=== PATIENT | male | born 1960 | race Caucasian/White ===

== ENCOUNTER → 2017-02-04 | Outpatient (CLI) | payer BC ==
[~2017-02-04] MED LIST: ARGI1CAP2 PO; ASCA500 PO; ASPI325T4 PO; B-COTAB18 PO; BIOTCAP2 PO; COEN150C PO; NSP500 PO; OMEG10002 PO; RESV1CAP3 PO; SYN150 PO; TNR50 PO; VITA400C15 PO; ZCR40 PO; ZINC50TA3 PO; [UNRECOGNIZED DRUG - CODE] PO
[2017-02-04 08:46] LABS: CHOLESTEROL/HDL RATIO 3.1
== END | disposition home or self-care (01) ==
LOC: C.LAB 07:10
PROVIDERS: ATTEND Internal Medicine Cardiovascular Disease
DX: I25.10 Atherosclerotic heart disease of native coronary artery without angina pectoris (principal)

== ENCOUNTER → 2017-09-27 | Outpatient (CLI) | payer OTHER | END | disposition home or self-care (01) | LOC: C.LABSPEC 14:48 | PROVIDERS: ATTEND Family Medicine | DX: N39.0 Urinary tract infection, site not specified (principal) ==

== ENCOUNTER 2020-01-25 10:14 | Inpatient (IN) ==
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
[2020-01-25] MEDS ORDERED: SODIUM CHLORIDE 0.9% 1000ML 1,000 ML IV SCH (10:45)
[2020-01-25] MEDS: HYDROmorphone INJ 0.5 MG/0.5 ML SYR IV PRN ×3 (11:01→12:35)
[2020-01-25] MEDS ORDERED: ONDANSETRON INJ 2 MG/ML 2 ML VIAL ONE ×2 (11:07→13:19)
[2020-01-25] MEDS ORDERED: ONDANSETRON INJ 2 MG/ML 2 ML VIAL IV STA (11:09)
--- NOTE | 2020-01-25 11:24 | XRay Report ---
XR hip LT min 2V CLINICAL HISTORY: likely fracture trauma. Pain. COMPARISON: None. DISCUSSION: Oblique fracture proximal femoral shaft. Moderate bony displacement. No evidence for disl ocation. No evidence for acetabular protrusion. There is no evidence for soft tissue swelling. IMPRESSION: Oblique, moderately distracted fracture proximal femoral shaft. No evidence for dislocati on. ACT 112: Negative or not required by law. The above report was generated using voice recognition software. It may contain grammatical, syntax or spelling errors. Electronically signed by: Gianni Blakely M.D. 01/25/2020 11:22 AM
--- NOTE | 2020-01-25 11:25 | XRay Report ---
XR chest 1V portable CLINICAL HISTORY: pre op COMPARISON STUDY: No previous studies for comparison. FINDINGS: The bones soft tissues and hemidiaphragms are normal. The cardiomediastinal silhouette is n ormal. The lungs are clear. The pulmonary vasculature is normal. IMPRESSION: Negative chest. ACT 112: Negative or not required by law. The above report was generated using voice recognition software. It may contain grammatical, syntax or spelling errors. Electronically signed by: Gianni Blakely M.D. 01/25/2020 11:24 AM
--- NOTE | 2020-01-25 11:29 | Electrocardiogram Report ---
Test Reason : Blood Pressure : / mmHG Vent. Rate : 055 BPM Atrial Rate : 055 BPM P-R Int : 198 ms QRS Dur : 094 ms QT Int : 444 ms P-R-T Axes : 060 012 013 degrees QTc Int : 424 ms Poor data quality, interpretation may be adversely affected Sinus bradycardia Nonspecific T wave abnormality Abnormal ECG When compared with ECG of 17-JUN-2019 08:37, Questionable change in QRS axis Nonspecific T wave abnormality now evident in Inferior leads Confirmed by Thom Carpenter ([id number]) on 01/25/2020 11:29:30 AM Referred By: REFERRED SELF Confirmed By:Thom Carpenter
[2020-01-25 11:39] LABS: Hematocrit (blood only) 45.1 % (42-52); Hemoglobin 15.1 g/dL (14.0-18.0); Mean Corpuscular Hemoglobin 30.9 pg (25-34); Mean Corpuscular Hgb Conc 33.5 g/dL (32-36); Mean Corpuscular Volume 92.2 fL (80-100); Mean Platelet Volume 13.6 fL (7.4-10.4); Platelet Count 100 K/uL (130-400); RDW Standard Deviation 42.9 fL (36.4-46.3); Red Blood Count 4.89 M/uL (4.7-6.1); White Blood Count 6.33 K/uL (4.8-10.8)
[2020-01-25 11:40] LABS: Basophils # (auto) 0.02 K/uL (0-0.2); Basophils % (auto) 0.3 %; Eosinophils # (auto) 0.14 K/uL (0-0.5); Eosinophils % (auto) 2.2 %; Immature Granulocytes # (auto) 0.01 K/uL (0.00-0.02); Immature Granulocytes % (auto) 0.2 %; Lymphocytes # (auto) 0.94 K/uL (1.2-3.4); Lymphocytes % (auto) 14.8 %; Monocytes # (auto) 0.46 K/uL (0.11-0.59); Monocytes % (auto) 7.3 %; Neutrophils # (auto) 4.76 K/uL (1.4-6.5); Neutrophils % (auto) 75.2 %; Platelet Estimate Decreased (Normal)
[2020-01-25 12:03] LABS: Partial Thromboplastin Ratio 0.9; Partial Thromboplastin Time 24.6 Seconds (21.0-31.0)
[2020-01-25 12:07] LABS: BUN Creatinine Ratio 17.6 (10-20); Calcium 8.3 mg/dl (8.5-10.1); Creatinine Clr Calc Pharmacy 115.8 ml/min; Potassium 3.6 mmol/L (3.5-5.1)
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
[2020-01-25] MEDS ORDERED: NALOXONE HCL 0.4 MG/1 ML VIAL/CARP IV PRN ×2 (12:14→20:27)
[2020-01-25] MEDS ORDERED: MAGNESIUM HYDROXIDE SUSP 30 ML UDC PO PRN (12:14)
[2020-01-25] MEDS ORDERED: bisacodyL 10 MG SUPP PR PRN (12:14)
[2020-01-25] MEDS ORDERED: LACTATED RINGER'S 1,000 ML IV SCH (12:15)
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
[2020-01-25] MEDS ORDERED: NEOSTIGMINE METHYLSULFATE 5 MG/5 ML SYR ONE (13:19)
[2020-01-25] MEDS ORDERED: BUPIVACAINE 0.5 % 5 MG/1 ML MPF 30ML VIAL ONE (13:19)
[2020-01-25] MEDS ORDERED: PROPOFOL IV EMULSION 10 MG/ML 20 ML VIAL IV ONE (13:19)
[2020-01-25] MEDS ORDERED: LIDOCAINE HCL 1% 20 ML VIAL ONE (13:19)
[2020-01-25] MEDS ORDERED: DEXAMETHASONE SOD INJ 4 MG/ML VIAL ONE (13:19)
[2020-01-25] MEDS ORDERED: GLYCOPYRROLATE 0.2 MG/ML VIAL ONE (13:19)
[2020-01-25] MEDS ORDERED: fentaNYL citrate 100 MCG/2 ML VIAL ONE (13:19)
[2020-01-25] MEDS ORDERED: MIDAZOLAM HCL 1 MG/ML 2ML VIAL ONE (13:19)
[2020-01-25] MEDS ORDERED: LIDOCAINE HCL 2% 2 ML VIAL/AMP(20MG/ML) INFIL ONE (13:19)
--- NOTE | 2020-01-25 13:19 | Anesthesiology Consultation ---
Date of Service January 25, 2020 Assessment & Plan ASA ASA3 Proposed Anesthesia Anesthesia Type: General Risk / Benefits Reviewed With: PT / POA / Parent / Guardian, Accepts Plan and Informed Consent Obtained History Surgery Operation Date: 01/25/20 14:00 Proposed Procedures p Bipolar Hip Prosthesis - Robert Josefa Narvaez MD Height/Weight Height: 5 ft 11 in Weight: 111.3 kg Allergies Allergy/AdvReac Type Severity Reaction Status Date / Time No Known Drug Allergies Allergy Verified 01/25/20 11:37 Medications Home Medications Medication Instructions Recorded Confirmed Last Taken levothyroxine 125 mcg tablet 125 mcg PO HS tab 04/03/19 01/25/20 01/25/20 resveratrol 250 mg capsule 500 mg PO QAM cap 04/03/19 01/25/20 01/24/20 omega-3 fatty acids 1,000 mg 1,000 mg PO BID 06/05/19 01/25/20 01/24/20 capsule aspirin 325 mg PO HS 06/12/19 01/25/20 06/18/19 20:00 coQ10 (ubiquinol) 100 mg PO BID 06/12/19 01/25/20 01/24/20 lecithin 2,040 mg PO TID 06/12/19 01/25/20 01/24/20 vitamin B complex 1 tab PO BID 06/12/19 01/25/20 01/24/20 simvastatin 40 mg tablet 40 mg PO HS #90 tab 06/18/19 01/25/20 01/24/20 niacin 1,000 mg tablet,extended 1,500 mg PO BID tab 01/13/20 01/25/20 01/24/20 release 24 hr atenolol 100 mg PO HS 01/25/20 01/25/20 01/24/20 cholecalciferol (vitamin D3) 25 mcg PO QAM 01/25/20 01/25/20 01/24/20 [Vitamin D3] vitamin K2 0 mcg PO QAM 01/25/20 01/25/20 01/24/20 Active Medications Generic Name Dose Route Start Last Admin Trade Name Freq PRN Reason Stop Dose Admin Hydromorphone HCl 0.5 mg 01/25/20 10:31 01/25/20 12:35 Dilaudid IV 02/08/20 10:30 0.5 mg Q20M PRN Administration Severe Pain (Rating 7,8,9,10) Sodium Chloride 1,000 mls @ 150 mls/hr 01/25/20 10:45 01/25/20 11:41 Nss 1000ml IV 01/25/20 17:24 150 mls/hr .Q6H40M ANTIONE Administration NPO Date Last Intake of Fluids: 01/25/20 Time Last Intake of Fluids: 07:00 Date Last Intake of Solids: 01/24/20 Time Last Intake of Solids: 02:20 Past Medical History Medical History CAD (coronary artery disease) 2002- angioplasty + BMS x2 Hyperlipidemia Hypertension Hypothyroidism Obesity Umbilical hernia (Acute) repaired Exercise / Class Metabolic Activity II 4-5 Yardwork/Stairs/Walk up hill Past Surgical History Surgical History H/O thyroidectomy FOR MULTI-NODULAR GOITER (2001) History of cardiac cath 2002- ANGIOPLASTY WITH 2 BARE METAL STENTS History of colonoscopy History of herniorrhaphy LAPAROSCOPIC/INGUINAL Past Anesthesia History No Hx of Anesthesia Complications and No Family Hx of Anesthesia Complications History of PONV No Hx of PONV and No Hx of Motion Sickness Social History Smoking Status: Never smoker Do You Dip or Chew Tobacco: No Hx Alcohol Use: No Hx Substance Use: No substance use type: does not use Review of Systems denies fever/cough/ colds/ chest pain/ SOB/ ELVIN Constitutional: no fever and no chills Respiratory: no cough and no dyspnea denies ELVIN Cardiovascular: no chest pain and no dyspnea on exertion Physical Exam Vital Signs Last Vital Signs Temp 36.9 C 01/25/20 10:23 Pulse 80 01/25/20 12:23 Resp 18 01/25/20 12:23 BP 114/67 01/25/20 12:23 Pulse Ox 97 01/25/20 12:23 ENMT Mouth: no TMJ abnormality and no dentition abnormality Thyromental Distance: > or= 3.5 Finger Breadths Mallampati Class: II Neck neck extension not limited Respiratory normal respiratory effort; no respiratory distress Auscultation: lungs clear to auscultation bilaterally Cardiovascular Rate/Rhythm: regular rate and regular rhythm Neurologic pt lower extremities in a binder Psychiatric Orientation: alert and oriented x 3 Testing Laboratory Results 01/25/20 10:46 01/25/20 11:36 PT 11.0 Seconds (9.0-12.0) 01/25/20 11:36 INR 1.0 (0.9-1.1) 01/25/20 11:36 APTT 24.6 Seconds (21.0-31.0) 01/25/20 11:36
[2020-01-25] MEDS ORDERED: ATROPINE SULFATE 0.1 MG/ML 10ML SYR IV PRN (13:24)
[2020-01-25] MEDS ORDERED: ONDANSETRON INJ 2 MG/ML 2 ML VIAL IV PRN (13:24)
[2020-01-25] MEDS ORDERED: HYDROmorphone INJ 2 MG/ML SYR/VIAL IV PRN (13:24)
[2020-01-25] MEDS ORDERED: ePHEDrine sulfate 50 MG/ML AMP IV PRN (13:24)
[2020-01-25] MEDS ORDERED: fentaNYL citrate 100 MCG/2 ML VIAL IV PRN (13:24)
[2020-01-25] MEDS ORDERED: CEFAZOLIN 250 MG/ML 1 GM VIAL ONE ×2 (14:01→18:36)
[2020-01-25] MEDS ORDERED: ROCURONIUM BROMIDE 10 MG/ML 5 ML VIAL IV ONE ×2 (14:09→15:03)
[2020-01-25] MEDS ORDERED: ePHEDrine sulfate 50 MG/ML SYR ONE ×2 (14:09→15:56)
[2020-01-25] MEDS ORDERED: HYDROmorphone INJ 2 MG/ML SYR/VIAL ONE (14:36)
--- NOTE | 2020-01-25 18:34 | Fluoroscopy Report ---
FL hip LT 2-3V CLINICAL HISTORY: LT HIP FX COMPARISON STUDY: Same date FLUOROSCOPY TIME: 3 minutes 25 seconds NUMBER OF FLUOROSCOPIC IMAGES: 8 FINDINGS: Anatomic alignment post left hip nailing. Intramedullary nir placed the length of the left femur. Fracture of proximal femur is again noted. IMPRESSION: Anatomic alignment post left hip nailing ACT 112: Negative or not required by law. The above report was generated using voice recognition software. It may contain grammatical, syntax or spelling errors. Electronically signed by: Gianni Blakely M.D. 01/25/2020 6:32 PM
--- NOTE | 2020-01-25 18:55 | Post Operative Brief Note ---
Immediate Post Op Note v1 Date of Surgery January 25, 2020 Pre & Post Diagnosis Operation Date: 01/25/20 14:00 Pre-Op Diagnosis: Left subtrochanteric femur fracture. Post-Op Diagnosis: Left subtrochanteric femur fracture. I identified the patient and participated in the time-out.: Yes Procedure Operation Date: 01/25/20 14:00 Actual Procedures p Open Reduction Internal Fixation Left Subtrochanteric Fracture.(Left) - Robert Narvaez MD Surgeon Robert Narvaez MD Pharmacy Intake Technician Laureen Vazquez MD & Stephanie Burger PAEric Estimated Blood Loss 120 Findings Consistent with Post-Op Diagnosis Fluids 2000 cc Anesthesia Type General Complications none
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
--- NOTE | 2020-01-25 19:29 | Anesthesiology Progress Note ---
Date of Service January 25, 2020 Anesthesia Post Procedure Vital Signs Vital Signs: Temp Pulse Pulse Resp BP BP Pulse Ox 01/25/20 12:23 80 18 114/67 97 01/25/20 10:23 36.9 C 70 18 145/83 H 98 Pain Intensity Left Hip: Pain Intensity: 8 Transfer of Care Handoff Completed per policy Notes Mental Status: alert / awake / arousable and participated in evaluation Patient Amnestic to Procedure: Yes Nausea / Vomiting: adequately controlled Pain: adequately controlled Airway Patency, RR, SpO2: stable & adequate BP & HR: stable & adequate Hydration State: stable & adequate Anesthetic Complications: no major complications apparent and Pt Satisfied with anesthetic care
[2020-01-25] MEDS ORDERED: LECITHIN PO SCH (20:27)
[2020-01-25] MEDS ORDERED: NON-FORMULARY MEDICATION (Coq10 (Ubiquinol) 100 MG) PO SCH (21:00)
[2020-01-25] MEDS: ONDANSETRON INJ 2 MG/ML 2 ML VIAL IV PRN (21:14)
--- NOTE | 2020-01-25 21:38 | Operative Report ---
Post Operative Report Pre & Post Diagnosis Operation Date: 01/25/20 14:00 Pre-Op Diagnosis: Left subtrochanteric femur fracture. Post-Op Diagnosis: Left subtrochanteric femur fracture. I identified the patient and participated in the time-out.: Yes Procedure Operation Date: 01/25/20 14:00 Actual Procedures p Open Reduction Internal Fixation Left Subtrochanteric Fracture.(Left) - Robert Narvaez MD Surgeon Robert Narvaez MD Pastry Wrapper Laureen Vazquez MD & Stephanie Burger PA-C Estimated Blood Loss 120 Findings Consistent with Post-Op Diagnosis Specimens None Complications none Disposition Accompanied Patient To Recovery: Yes Disposition: Recovery Room Description of Procedure Lateral position, standard prep and drape, time-out Open Reduction Internal Fixation Left Subtrochanteric Fracture Please see Dr Narvaez's procedure notes for specific details I was present throughout the case, assisted for wound closure and transferred the patient to PACU in stable condition I attest to the content of the Intraoperative Record and any orders documented therein. Any exceptions are noted below.
[2020-01-25] MEDS ORDERED: CEFAZOLIN 2000MG 2,000 MG/15 ML SYR IV ONE (22:00)
[2020-01-25] MEDS: VITAMIN B COMPLEX TAB PO SCH (22:15)
[2020-01-25] MEDS: DOCUSATE SODIUM/SENNA 50/8.6MG TAB PO SCH (22:15)
[2020-01-25] MEDS: ATENOLOL 50 MG TABLET PO SCH (22:15)
[2020-01-25] MEDS: LACTATED RINGER'S 1,000 ML IV SCH (22:16)
[2020-01-25] MEDS: OMEGA-3 (PURIFIED FISH OIL) 1 GM CAP PO SCH (22:21)
[2020-01-26] MEDS: HYDROmorphone INJ 0.5 MG/0.5 ML SYR IV PRN ×4 (00:42→12:27)
[2020-01-26] MEDS: LACTATED RINGER'S 1,000 ML IV SCH ×3 (02:30→22:16)
[2020-01-26 04:36] LABS: Appearance Urine Clear (Clear); Bacteria Urine Automated Negative (Negative); Bilirubin Urine Negative (Negative); Blood Urine 2+ (Negative); Color Urine Yellow; Glucose Urine UA Negative (Negative); Ketones Urine 3+ (Negative); Leukocyte Esterase Urine Negative (Negative); Nitrite Urine Negative (Negative); Protein Urine Negative (Negative); RBC Urine Automated >30 /hpf (0-4); Specific Gravity Urine 1.022 (1.000-1.030); Urobilinogen Urine Negative (Negative)
[2020-01-26] MEDS: LEVOTHYROXINE SODIUM 125 MCG TABLET PO SCH (05:50)
[2020-01-26] MEDS ORDERED: CEFAZOLIN 2000MG 2,000 MG/15 ML SYR IV SCH (06:00)
[2020-01-26 07:08] LABS: BUN Creatinine Ratio 13.3 (10-20); Calcium 7.6 mg/dl (8.5-10.1); Creatinine Clr Calc Pharmacy 118.6 ml/min; Est GFR (African American) 110.1; Potassium 4.3 mmol/L (3.5-5.1)
[2020-01-26 07:16] LABS: Eosinophils # (auto) 0.01 K/uL (0-0.5); Eosinophils % (auto) 0.1 %; Hematocrit (blood only) 36.3 % (42-52); Hemoglobin 12.4 g/dL (14.0-18.0); Immature Granulocytes # (auto) 0.01 K/uL (0.00-0.02); Immature Granulocytes % (auto) 0.1 %; Lymphocytes # (auto) 0.63 K/uL (1.2-3.4); Lymphocytes % (auto) 8.9 %; Mean Corpuscular Hemoglobin 31.6 pg (25-34); Mean Corpuscular Hgb Conc 34.2 g/dL (32-36); Mean Corpuscular Volume 92.4 fL (80-100); Mean Platelet Volume 12.2 fL (7.4-10.4); Monocytes # (auto) 0.76 K/uL (0.11-0.59); Monocytes % (auto) 10.7 %; Neutrophils # (auto) 5.68 K/uL (1.4-6.5); Neutrophils % (auto) 80.2 %; Platelet Count 120 K/uL (130-400); Platelet Estimate Decreased (Normal); RDW Coefficient of Variation 12.9 % (11.5-14.5); RDW Standard Deviation 43.6 fL (36.4-46.3); Red Blood Count 3.93 M/uL (4.7-6.1); White Blood Count 7.09 K/uL (4.8-10.8)
[2020-01-26] MEDS: ONDANSETRON INJ 2 MG/ML 2 ML VIAL IV PRN (07:27)
[2020-01-26] MEDS ORDERED: ASPIRIN 81 MG ECTAB PO SCH (09:00)
[2020-01-26] MEDS ORDERED: OXYCODONE HCL IR 5 MG TAB (IMMEDIATE RELEASE) PO PRN (09:33)
[2020-01-26] MEDS: OMEGA-3 (PURIFIED FISH OIL) 1 GM CAP PO SCH ×2 (09:43→20:27)
[2020-01-26] MEDS: CHOLECALCIFEROL 1,000 UNITS 25 MCG TAB PO SCH (09:43)
[2020-01-26] MEDS: VITAMIN B COMPLEX TAB PO SCH ×2 (09:43→20:26)
[2020-01-26] MEDS: NIACIN EXTENDED REL 500 MG TABCR PO SCH ×2 (09:44→20:27)
[2020-01-26] MEDS: ACETAMINOPHEN 500 MG TAB PO SCH ×2 (10:28→16:10)
--- NOTE | 2020-01-26 10:57 | Orthopedic Progress Note ---
Date of Service January 26, 2020 Assessment & Plan (1) Hip fracture, left: POD #1 s/p ORIF Left subtroch femur fracture. WBAT with walker. PT/OT Resume diet. Continue pain control. DVT Prophylaxis: TEDs x 3 weeks on operative leg, SCD's while in hospital, ASA 81 PO daily for 3 weeks. Continue to fallow while in house. Acute anemia blood loss, will continue to monitor. Will start Fe & Vit C take together for 2 weeks. Dressing to be changed to Silverlon tomorrow by ortho team. Continue care per primary service. Admission and Anticipated Discharge Date Admission Date: January 25, 2020 Subjective Feeling pretty wiped out and pain in his buttock. Did feel light headed when attempting to stand with PT earlier today. Review of Systems Review of Systems: All systems reviewed & are unremarkable except as noted in HPI & below Physical Exam Physical Exam: LLE: Neurovascularly intact. Calf soft and non-tender. Dressing clean, dry, intact. Minimal discomfort with log roll hip. Results & Data ([facility]) Vital Signs (Past 12 Hours) Vital Signs Temp Pulse Resp BP Pulse Ox Pulse Ox 01/26/20 06:35 133/80 01/26/20 06:30 36.7 C 67 16 116/77 98 01/26/20 05:07 99 01/26/20 03:25 36.5 C 67 16 120/76 99 01/25/20 23:45 96 01/25/20 23:17 36.5 C 71 16 101/66 96 Laboratory Results 01/26/20 01/26/20 01/26/20 Range/Units Unknown 06:15 06:15 WBC 7.09 (4.8-10.8) K/uL RBC 3.93 L (4.7-6.1) M/uL Hgb 12.4 L (14.0-18.0) g/dL Hct 36.3 L (42-52) % MCV 92.4 (80-100) fL MCH 31.6 (25-34) pg MCHC 34.2 (32-36) g/dL RDW Std Deviation 43.6 (36.4-46.3) fL RDW Coeff of [place] 12.9 (11.5-14.5) % Plt Count 120 L (130-400) K/uL MPV 12.2 H (7.4-10.4) fL Immature Gran % (Auto) 0.1 % Neut % (Auto) 80.2 % Lymph % (Auto) 8.9 % [place] % (Auto) 10.7 % Eos % (Auto) 0.1 % Baso % (Auto) 0.0 % Immature Gran # (Auto) 0.01 (0.00-0.02) K/uL Neut # (Auto) 5.68 (1.4-6.5) K/uL Lymph # (Auto) 0.63 L (1.2-3.4) K/uL [place] # (Auto) 0.76 H (0.11-0.59) K/uL Eos # (Auto) 0.01 (0-0.5) K/uL Baso # (Auto) 0.00 (0-0.2) K/uL Platelet Estimate Decreased L (Normal) PT INR APTT PTT Ratio Sodium 139 Potassium 4.3 D Chloride 107 Carbon Dioxide 27 Anion Gap 5.0 BUN 11 Creatinine 0.83 Est Cr Clr Drug Dosing 118.6 Est GFR ( Amer) 110.1 Est GFR (Non-Af Amer) 95.0 BUN/Creatinine Ratio 13.3 Glucose 121 H Calcium 7.6 L 25-OH Vitamin D Total (30-100) ng/ml Urine Color Yellow Urine Appearance Clear (Clear) Urine pH 5.0 (4.5-7.5) Ur Specific [place] 1.022 (1.000-1.030) Urine Protein Negative (Negative) Urine Glucose (UA) Negative (Negative) Urine Ketones 3+ H (Negative) Urine Blood 2+ H (Negative) Urine Nitrite Negative (Negative) Urine Bilirubin Negative (Negative) Urine Urobilinogen Negative (Negative) Ur Leukocyte Esterase Negative (Negative) Urine WBC (Auto) 1-5 (0-5) /hpf Urine RBC (Auto) >30 H (0-4) /hpf U Hyaline Cast (Auto) 1-5 (0-5) /lpf U Epithel Cells (Auto) 10-20 H (0-5) /lpf Urine Bacteria (Auto) Negative (Negative) COVID-19 PCR (Negative) Blood Type Antibody Screen 01/25/20 01/25/20 01/25/20 Range/Units 12:53 11:36 11:36 WBC (4.8-10.8) K/uL RBC (4.7-6.1) M/uL Hgb (14.0-18.0) g/dL Hct (42-52) % MCV (80-100) fL MCH (25-34) pg MCHC (32-36) g/dL RDW Std Deviation (36.4-46.3) fL RDW Coeff of E[place] (11.5-14.5) % Plt Count (130-400) K/uL MPV (7.4-10.4) fL Immature Gran % (Auto) % Neut % (Auto) % Lymph % (Auto) % [place] % (Auto) % Eos % (Auto) % Baso % (Auto) % Immature Gran # (Auto) (0.00-0.02) K/uL Neut # (Auto) (1.4-6.5) K/uL Lymph # (Auto) (1.2-3.4) K/uL [place] # (Auto) (0.11-0.59) K/uL Eos # (Auto) (0-0.5) K/uL Baso # (Auto) (0-0.2) K/uL Platelet Estimate (Normal) PT 11.0 INR 1.0 APTT 24.6 PTT Ratio 0.9 Sodium 141 Potassium 3.6 Chloride 108 H Carbon Dioxide 25 Anion Gap 8.0 BUN 15 Creatinine 0.85 Est Cr Clr Drug Dosing 115.8 Est GFR ( Amer) 109.0 Est GFR (Non-Af Amer) 94.0 BUN/Creatinine Ratio 17.6 Glucose 107 H Calcium 8.3 L 25-OH Vitamin D Total (30-100) ng/ml Urine Color Urine Appearance (Clear) Urine pH (4.5-7.5) Ur Specific [place] (1.000-1.030) Urine Protein (Negative) Urine Glucose (UA) (Negative) Urine Ketones (Negative) Urine Blood (Negative) Urine Nitrite (Negative) Urine Bilirubin (Negative) Urine Urobilinogen (Negative) Ur Leukocyte Esterase (Negative) Urine WBC (Auto) (0-5) /hpf Urine RBC (Auto) (0-4) /hpf U Hyaline Cast (Auto) (0-5) /lpf U Epithel Cells (Auto) (0-5) /lpf Urine Bacteria (Auto) (Negative) COVID-19 PCR (Negative) Blood Type A Positive Antibody Screen NEGATIVE 01/25/20 01/25/20 01/25/20 Range/Units 11:35 11:15 10:46 WBC (4.8-10.8) K/uL RBC (4.7-6.1) M/uL Hgb (14.0-18.0) g/dL Hct (42-52) % MCV (80-100) fL MCH (25-34) pg MCHC (32-36) g/dL RDW Std Deviation (36.4-46.3) fL RDW Coeff of [place] (11.5-14.5) % Plt Count (130-400) K/uL MPV (7.4-10.4) fL Immature Gran % (Auto) % Neut % (Auto) % Lymph % (Auto) % [place] % (Auto) % Eos % (Auto) % Baso % (Auto) % Immature Gran # (Auto) (0.00-0.02) K/uL Neut # (Auto) (1.4-6.5) K/uL Lymph # (Auto) (1.2-3.4) K/uL Hudson # (Auto) (0.11-0.59) K/uL Eos # (Auto) (0-0.5) K/uL Baso # (Auto) (0-0.2) K/uL Platelet Estimate (Normal) PT INR APTT PTT Ratio Sodium Cancelled Potassium Cancelled Chloride Cancelled Carbon Dioxide Cancelled Anion Gap Cancelled BUN Cancelled Creatinine Cancelled Est Cr Clr Drug Dosing Cancelled Est GFR ( Amer) Cancelled Est GFR (Non-Af Amer) Cancelled BUN/Creatinine Ratio Cancelled Glucose Cancelled Calcium Cancelled 25-OH Vitamin D Total 30.1 (30-100) ng/ml Urine Color Urine Appearance (Clear) Urine pH (4.5-7.5) Ur Specific [place] (1.000-1.030) Urine Protein (Negative) Urine Glucose (UA) (Negative) Urine Ketones (Negative) Urine Blood (Negative) Urine Nitrite (Negative) Urine Bilirubin (Negative) Urine Urobilinogen (Negative) Ur Leukocyte Esterase (Negative) Urine WBC (Auto) (0-5) /hpf Urine RBC (Auto) (0-4) /hpf U Hyaline Cast (Auto) (0-5) /lpf U Epithel Cells (Auto) (0-5) /lpf Urine Bacteria (Auto) (Negative) COVID-19 PCR NEGATIVE (Negative) Blood Type Antibody Screen 01/25/20 01/25/20 Range/Units 10:46 10:46 WBC 6.33 (4.8-10.8) K/uL RBC 4.89 (4.7-6.1) M/uL Hgb 15.1 (14.0-18.0) g/dL Hct 45.1 (42-52) % MCV 92.2 (80-100) fL MCH 30.9 (25-34) pg MCHC 33.5 (32-36) g/dL RDW Std Deviation 42.9 (36.4-46.3) fL RDW Coeff of E[place] 13.0 (11.5-14.5) % Plt Count 100 L (130-400) K/uL MPV 13.6 H (7.4-10.4) fL Immature Gran % (Auto) 0.2 % Neut % (Auto) 75.2 % Lymph % (Auto) 14.8 % [place] % (Auto) 7.3 % Eos % (Auto) 2.2 % Baso % (Auto) 0.3 % Immature Gran # (Auto) 0.01 (0.00-0.02) K/uL Neut # (Auto) 4.76 (1.4-6.5) K/uL Lymph # (Auto) 0.94 L (1.2-3.4) K/uL [place] # (Auto) 0.46 (0.11-0.59) K/uL Eos # (Auto) 0.14 (0-0.5) K/uL Baso # (Auto) 0.02 (0-0.2) K/uL Platelet Estimate Decreased L (Normal) PT Cancelled INR Cancelled APTT Cancelled PTT Ratio Cancelled Sodium Potassium Chloride Carbon Dioxide Anion Gap BUN Creatinine Est Cr Clr Drug Dosing Est GFR ( Amer) Est GFR (Non-Af Amer) BUN/Creatinine Ratio Glucose Calcium 25-OH Vitamin D Total (30-100) ng/ml Urine Color Urine Appearance (Clear) Urine pH (4.5-7.5) Ur Specific [place] (1.000-1.030) Urine Protein (Negative) Urine Glucose (UA) (Negative) Urine Ketones (Negative) Urine Blood (Negative) Urine Nitrite (Negative) Urine Bilirubin (Negative) Urine Urobilinogen (Negative) Ur Leukocyte Esterase (Negative) Urine WBC (Auto) (0-5) /hpf Urine RBC (Auto) (0-4) /hpf U Hyaline Cast (Auto) (0-5) /lpf U Epithel Cells (Auto) (0-5) /lpf Urine Bacteria (Auto) (Negative) COVID-19 PCR (Negative) Blood Type Antibody Screen Diagnostic Findings Fluoroscopic images from intra-op show near anatomic reduction of comminuted left subtroch femur fracture, with hardware in good position.
[2020-01-26] MEDS: ASCORBIC ACID 500 MG TAB PO SCH ×2 (12:28→17:46)
[2020-01-26] MEDS: FERROUS SULFATE 325 MG TAB PO SCH ×2 (12:28→17:46)
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
[2020-01-26] MEDS ORDERED: ACETAMINOPHEN 500 MG TAB PO PRN (18:27)
[2020-01-26] MEDS: ATENOLOL 50 MG TABLET PO SCH (20:18)
[2020-01-26] MEDS: HYDROCODONE/ACETAMOPHEN 5/325MG TAB PO PRN (20:25)
[2020-01-26] MEDS: SIMVASTATIN 40 MG TAB PO SCH (20:26)
[2020-01-26] MEDS: DOCUSATE SODIUM/SENNA 50/8.6MG TAB PO SCH (20:27)
[2020-01-27] MEDS: HYDROCODONE/ACETAMOPHEN 5/325MG TAB PO PRN ×4 (02:21→21:07)
[2020-01-27] MEDS: LEVOTHYROXINE SODIUM 125 MCG TABLET PO SCH (06:18)
[2020-01-27 07:10] LABS: Hematocrit (blood only) 32.3 % (42-52); Hemoglobin 10.6 g/dL (14.0-18.0); Mean Corpuscular Hemoglobin 30.5 pg (25-34); Mean Corpuscular Hgb Conc 32.8 g/dL (32-36); Mean Corpuscular Volume 93.1 fL (80-100); Mean Platelet Volume 12.4 fL (7.4-10.4); Platelet Count 94 K/uL (130-400); RDW Coefficient of Variation 13.3 % (11.5-14.5); RDW Standard Deviation 45.1 fL (36.4-46.3); Red Blood Count 3.47 M/uL (4.7-6.1); White Blood Count 6.52 K/uL (4.8-10.8)
[2020-01-27 07:31] LABS: BUN Creatinine Ratio 13.9 (10-20); Calcium 7.6 mg/dl (8.5-10.1); Creatinine Clr Calc Pharmacy 105.8 ml/min; Est GFR (African American) 102.3; Est GFR (Non-African American) 88.3
--- NOTE | 2020-01-27 08:30 | Orthopedic Progress Note ---
Date of Service January 27, 2020 Assessment & Plan (1) Hip fracture, left: POD #2 s/p ORIF Left subtroch femur fracture, continued pain and light headedness. WBAT with walker. PT/OT Continue diet. Continue pain control. DVT Prophylaxis: TEDs x 3 weeks on operative leg, SCD's while in hospital, ASA 81 PO daily. Continue to follow while in house. Acute anemia blood loss, will continue to monitor. Will start Fe & Vit C take together for 2 weeks. Dressing changed to Silverlon proximal incisions and 2x2 & Tegaderm for distal incisions, 01/27/2020. Continue care per primary service. Admission and Anticipated Discharge Date Admission Date: January 25, 2020 Subjective Continued left leg pain. + light headed when attempting to stand. - Chest pain & SOB Review of Systems Review of Systems: All systems reviewed & are unremarkable except as noted in HPI & below Physical Exam Physical Exam: LLE: Neurovascularly intact. Calf soft and non-tender. Incisions clean, dry, intact. Minimal discomfort with log roll hip. Results & Data ([facility]) Vital Signs (Past 12 Hours) Vital Signs Temp Pulse Resp BP Pulse Ox 01/27/20 07:16 36.6 C 76 18 118/70 95 01/27/20 06:16 79 106/62 01/26/20 23:05 37.1 C 75 16 111/70 95
[2020-01-27] MEDS: LACTATED RINGER'S 1,000 ML IV SCH ×2 (08:39→18:21)
[2020-01-27] MEDS: VITAMIN B COMPLEX TAB PO SCH ×2 (08:40→21:08)
[2020-01-27] MEDS: NIACIN EXTENDED REL 500 MG TABCR PO SCH ×2 (08:40→21:07)
[2020-01-27] MEDS: ASPIRIN 81 MG ECTAB PO SCH (08:40)
[2020-01-27] MEDS: OMEGA-3 (PURIFIED FISH OIL) 1 GM CAP PO SCH ×2 (08:40→21:08)
[2020-01-27] MEDS: CHOLECALCIFEROL 1,000 UNITS 25 MCG TAB PO SCH (08:40)
[2020-01-27] MEDS: ASCORBIC ACID 500 MG TAB PO SCH ×2 (08:41→16:12)
[2020-01-27] MEDS: FERROUS SULFATE 325 MG TAB PO SCH ×2 (08:41→16:12)
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
--- NOTE | 2020-01-27 17:18 | Ultrasound Report ---
US abdomen limited HISTORY: Pain thrombocytopenia. COMPARISON: None. FINDINGS: Liver and spleen appear unremarkable. Spleen measures 10 cm in maximum dimension. Liver measures 18 c m. Echogenicity is uniform. IMPRESSION: Normal ultrasonic evaluation of the liver and spleen. ACT 112: Negative or not required by law. The above report was generated using voice recognition software. It may contain grammatical, syntax or spelling errors. Electronically signed by: Gianni Blakely M.D. 01/27/2020 5:17 PM
[2020-01-27] MEDS: ONDANSETRON INJ 2 MG/ML 2 ML VIAL IV PRN (18:10)
[2020-01-27] MEDS: CALCIUM CITRATE 950 MG TAB PO SCH (21:07)
[2020-01-27] MEDS: DOCUSATE SODIUM/SENNA 50/8.6MG TAB PO SCH (21:08)
[2020-01-27] MEDS: SIMVASTATIN 40 MG TAB PO SCH (21:08)
[2020-01-28] MEDS: LACTATED RINGER'S 1,000 ML IV SCH ×2 (03:58→13:17)
[2020-01-28] MEDS: HYDROCODONE/ACETAMOPHEN 5/325MG TAB PO PRN ×4 (03:58→20:44)
[2020-01-28] MEDS: LEVOTHYROXINE SODIUM 125 MCG TABLET PO SCH (05:57)
[2020-01-28 06:04] LABS: Hematocrit (blood only) 28.6 % (42-52); Hemoglobin 9.5 g/dL (14.0-18.0); Mean Corpuscular Hemoglobin 30.4 pg (25-34); Mean Corpuscular Hgb Conc 33.2 g/dL (32-36); Mean Corpuscular Volume 91.7 fL (80-100); RDW Coefficient of Variation 13.1 % (11.5-14.5); RDW Standard Deviation 44.3 fL (36.4-46.3); Red Blood Count 3.12 M/uL (4.7-6.1); White Blood Count 5.31 K/uL (4.8-10.8)
[2020-01-28 06:09] LABS: Mean Platelet Volume 11.9 fL (7.4-10.4); Platelet Count 86 K/uL (130-400)
[2020-01-28 06:40] LABS: BUN Creatinine Ratio 11.6 (10-20); Calcium 7.5 mg/dl (8.5-10.1); Creatinine Clr Calc Pharmacy 136.7 ml/min; Est GFR (African American) 116.7; Est GFR (Non-African American) 100.7; Potassium 3.7 mmol/L (3.5-5.1)
[2020-01-28] MEDS: OMEGA-3 (PURIFIED FISH OIL) 1 GM CAP PO SCH ×2 (07:33→20:40)
[2020-01-28] MEDS: VITAMIN B COMPLEX TAB PO SCH ×2 (07:33→20:40)
[2020-01-28] MEDS: FERROUS SULFATE 325 MG TAB PO SCH ×2 (07:34→17:26)
[2020-01-28] MEDS: ASPIRIN 81 MG ECTAB PO SCH (07:34)
[2020-01-28] MEDS: ASCORBIC ACID 500 MG TAB PO SCH ×2 (07:34→17:26)
[2020-01-28] MEDS: CALCIUM CITRATE 950 MG TAB PO SCH (07:34)
[2020-01-28] MEDS: NIACIN EXTENDED REL 500 MG TABCR PO SCH ×2 (07:34→20:40)
[2020-01-28] MEDS: CHOLECALCIFEROL 1,000 UNITS 25 MCG TAB PO SCH (07:35)
[2020-01-28 09:33] LABS: Albumin Level 2.4 gm/dl (3.4-5.0); Bilirubin Direct 0.2 mg/dl (0-0.2); Bilirubin,Total 0.7 mg/dl (0.2-1); Total Protein 5.1 gm/dl (6.4-8.2)
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
[2020-01-28] MEDS: DOCUSATE SODIUM/SENNA 50/8.6MG TAB PO SCH (20:40)
[2020-01-28] MEDS: SIMVASTATIN 40 MG TAB PO SCH (20:40)
[2020-01-28] MEDS ORDERED: ATENOLOL 50 MG TABLET PO SCH (21:00)
[2020-01-29] MEDS: LEVOTHYROXINE SODIUM 125 MCG TABLET PO SCH (05:53)
[2020-01-29 06:30] LABS: Hematocrit (blood only) 28.5 % (42-52); Hemoglobin 9.6 g/dL (14.0-18.0); Mean Corpuscular Hemoglobin 30.9 pg (25-34); Mean Corpuscular Hgb Conc 33.7 g/dL (32-36); Mean Corpuscular Volume 91.6 fL (80-100); Platelet Count 112 K/uL (130-400); RDW Standard Deviation 43.5 fL (36.4-46.3); Red Blood Count 3.11 M/uL (4.7-6.1); White Blood Count 4.97 K/uL (4.8-10.8)
[2020-01-29 06:38] LABS: Albumin Level 2.4 gm/dl (3.4-5.0); BUN Creatinine Ratio 11.6 (10-20); Calcium 7.7 mg/dl (8.5-10.1); Creatinine Clr Calc Pharmacy 121.5 ml/min; Est GFR (African American) 111.2; Est GFR (Non-African American) 95.9; Potassium 4.1 mmol/L (3.5-5.1)
[2020-01-29 06:41] LABS: Albumin Globulin Ratio 0.8 (0.9-2); Total Protein 5.4 gm/dl (6.4-8.2)
[2020-01-29] MEDS: FERROUS SULFATE 325 MG TAB PO SCH (08:42)
[2020-01-29] MEDS: ASCORBIC ACID 500 MG TAB PO SCH (08:42)
[2020-01-29] MEDS: CALCIUM CITRATE 950 MG TAB PO SCH (08:43)
[2020-01-29] MEDS: NIACIN EXTENDED REL 500 MG TABCR PO SCH (08:43)
[2020-01-29] MEDS: CHOLECALCIFEROL 1,000 UNITS 25 MCG TAB PO SCH (08:43)
[2020-01-29] MEDS: OMEGA-3 (PURIFIED FISH OIL) 1 GM CAP PO SCH (08:43)
[2020-01-29] MEDS: VITAMIN B COMPLEX TAB PO SCH (08:43)
[2020-01-29] MEDS: ASPIRIN 81 MG ECTAB PO SCH (08:43)
--- NOTE | 2020-01-29 09:38 | Orthopedic Progress Note ---
Date of Service January 29, 2020 Assessment & Plan (1) Hip fracture, left: POD #4 s/p ORIF Left subtroch femur fracture, continued pain and light headedness. WBAT with walker. PT/OT Continue diet. H/H seems to be stable. Agree with treatment as per primary service. Continue pain control. DVT Prophylaxis: TEDs x 3 weeks on operative leg, SCD's while in hospital, ASA 81 PO daily. Continue to follow while in house. Acute anemia blood loss, will continue to monitor. Will start Fe & Vit C take together for 2 weeks. Dressing changed left hip proximal incision, pressure dressing applied to help prevent leakage. 01/29/20. Silverlon left in place. Continue care per primary service. Will notify Dr. Narvaez of today's findings. Patient ready for discharge to inpatient rehab vs. SNF when medically stable and authorization obtained. I, Dr. Narvaez, saw and examined the patient today and agree with the above findings and plan of care discussed with my PA. Admission and Anticipated Discharge Date Admission Date: January 25, 2020 Subjective Feeling okay today, was sitting in chair for almost 2 hours today, states that he thinks that was too much at once. Got a little lightheaded with sitting and dangling left leg. Feels better in bed. Still having drainage from left hip incision. Soaked thru dressings again. Physical Exam Physical Exam: Left hip incision clean and intact. Has yellow brownish serous fluid on dressings. Leaking onto bed and gown. dressings removed. Incision clean, dry, intact. Silverlon intact. No active drainage. No surrounding seroma, or tenderness. 1 small fracture blister. Zipline in place. Pressure dressing applied to left hip proximal incision with xeroform, 4x4's and ABD pad. Results & Data ([facility]) Vital Signs (Past 12 Hours) Vital Signs Temp Pulse Resp BP BP Pulse Ox Pulse Ox 01/29/20 07:24 37.2 C 70 18 130/71 97 01/29/20 05:48 36.7 C 70 12 113/71 97 01/29/20 04:25 96 01/28/20 23:30 96 01/28/20 23:15 36.8 C 76 16 122/71 96 01/28/20 22:02 76 135/71
[2020-01-29] MEDS: HYDROCODONE/ACETAMOPHEN 5/325MG TAB PO PRN (13:56)
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
== END 2020-01-29 15:43 | DRG 481 ==
LOC: ED 10:14 → OR 13:00 → SUATTDRO 19:38 → 3W 19:38

== ENCOUNTER 2024-01-29 19:40 | Observation (INO) ==
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
[2024-01-29] MEDS: METOCLOPRAMIDE HCL INJ 5 MG/ML 2 ML VIAL IV ONE (20:08)
[2024-01-29] MEDS: SODIUM CHLORIDE 0.9% 1,000 ML IV SCH (20:08)
[2024-01-29 20:21] LABS: iSTAT Ionized Calcium 1.07 mmol/l (1.12-1.32); iSTAT Potassium 3.8 mmol/L (3.3-5.0)
[2024-01-29] MEDS: OPTIRAY 320 125ml IV ONE (20:28)
[2024-01-29 20:40] LABS: Alanine Aminotransferase 69 U/L (7-52); Albumin Globulin Ratio 1.3 (0.9-2); Albumin Level 3.8 gm/dl (3.4-5.0); Alkaline Phosphatase 56 U/L (34-104); Anion Gap 7 (3-11); Aspartate Aminotransferase 120 U/L (13-39); BUN Creatinine Ratio 12.2 (10-20); Bilirubin,Total 1.2 mg/dl (0.2-1.0); Blood Urea Nitrogen 12 mg/dl (6-23); Calcium 8.4 mg/dl (8.6-10.3); Carbon Dioxide 24 mmol/L (21-32); Chloride 99 mmol/L (98-107); Est GFR (African American) 93.4 ml/min; Est GFR (Non-African American) 80.6 ml/min; Glucose 149 mg/dl (70-99(Fasting)); Lipase 70 U/L (11-82); Potassium 3.8 mmol/L (3.5-5.1); Sodium 130 mmol/L (136-145); Total Protein 6.8 gm/dl (6.0-8.3)
[2024-01-29 20:46] LABS: Troponin I High Sensitivity 26.5 pg/ml (0-20)
[2024-01-29 20:48] LABS: ALC (manual) 0.35 K/uL (1.2-3.4); ANC (manual) 1.26 K/uL (1.4-6.5); Basophils # (manual) 0.02 K/uL (0-0.2); Basophils % (manual) 1 %; Hematocrit (blood only) 48.1 % (42.0-52.0); Hemoglobin 16.9 g/dl (14.0-18.0); Lymphocytes # (manual) 0.15 K/uL (1.2-3.4); Lymphocytes % (manual) 9 %; Mean Corpuscular Hemoglobin 29.7 pg (25.0-34.0); Mean Corpuscular Hgb Conc 35.1 g/dL (32.0-36.0); Mean Corpuscular Volume 84.5 fL (80.0-100.0); Mean Platelet Volume 12.6 fL (9.4-12.4); Monocytes # (manual) 0.05 K/uL (0.11-0.59); Monocytes % (manual) 3 %; Neutrophils # (manual) 1.26 K/uL (1.40-6.50); Neutrophils % (manual) 75 %; Platelet Count 56 K/uL (130-400); Platelet Estimate Decreased (Normal); Procalcitonin 2.71 ng/ml (0-0.5); RDW Coefficient of Variation 12.6 % (11.5-14.5); RDW Standard Deviation 38.7 fL (36.4-46.3); Reactive Lymphocytes % (manual) 12 %; Red Blood Count 5.69 M/uL (4.70-6.10); White Blood Count 1.68 K/ul (4.8-10.8)
[2024-01-29 21:06] LABS: Adenovirus PCR Not Detected (NotDetected); Bordetella parapertussis PCR Not Detected (NotDetected); Bordetella pertussis PCR Not Detected (NotDetected); Chlamydia pneumoniae PCR Not Detected (NotDetected); Coronavirus 229E PCR Not Detected (NotDetected); Coronavirus CoV-2 (COVID19)PCR Not Detected (NotDetected); Coronavirus HKU1 PCR Not Detected (NotDetected); Coronavirus NL63 PCR Not Detected (NotDetected); Coronavirus OC43PCR Not Detected (NotDetected); Human Metapneumovirus PCR Not Detected (NotDetected); Influenza A PCR Not Detected (NotDetected); Influenza B PCR Not Detected (NotDetected); Mycoplasma pneumoniae PCR Not Detected (NotDetected); Parainfluenza Virus 1 PCR Not Detected (NotDetected); Parainfluenza Virus 2 PCR Not Detected (NotDetected); Parainfluenza Virus 3 PCR Not Detected (NotDetected); Parainfluenza Virus 4 PCR Not Detected (NotDetected); Respiratory Syncytial VirusPCR Not Detected (NotDetected); Rhinovirus/Enterovirus PCR Not Detected (NotDetected)
[2024-01-29 21:14] LABS: Lyme Screen Rflx Confirmation Positive (Negative)
[2024-01-29] MEDS: cefTRIAXone SODIUM 2,000 MG/50 ML BAG IV STA (21:38)
[2024-01-29 21:48] LABS: Lyme Ab IgG 2nd Tier Confirm Positive (Negative)
[2024-01-29 21:49] LABS: Lyme Ab IgM 2nd Tier Confirm Positive (Negative)
[2024-01-29] MEDS: DOXYCYCLINE HYCLATE 100 MG in DEXTROSE 5% MINI-B 100 ML IV STA (22:10)
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
[2024-01-29] MEDS ORDERED: ONDANSETRON INJ 2 MG/ML 2 ML VIAL IV PRN (23:18)
[2024-01-29] MEDS ORDERED: POLYETHYLENE (MIRALAX) 17 GM PACK PO PRN (23:18)
[2024-01-29] MEDS ORDERED: MELATONIN 3 MG TAB PO PRN (23:18)
[2024-01-29] MEDS ORDERED: ACETAMINOPHEN 325 MG TAB PO PRN (23:18)
--- NOTE | 2024-01-30 00:11 | CT Scan Report ---
Exam(s): CT HEAD Without Contrast EXAM: CT Head Without Intravenous Contrast CLINICAL HISTORY: Reason for exam: dizziness/syncope/weak. TECHNIQUE: Axial computed tomography images of the head/brain without intravenous contrast. CTDI is 37 mGy and DLP is 624 mGy-cm. Automated exposure control was utilized for the study. A dose lowering technique was utilized adhering to the principles of ALARA. COMPARISON: Head CT 01/27/2020 FINDINGS: Brain: No hemorrhage, extra-axial fluid collection, mass effect, or edema. Ventricles: Unremarkable. Bones/joints: Unremarkable. No fracture. Soft tissues: Unremarkable. Sinuses: No acute sinusitis. Mastoid air cells: Unremarkable as visualized. IMPRESSION: 1. No acute intracranial abnormality. Electronically signed by: Jarrod Medina MD 01/30/24 00:10 AM
--- NOTE | 2024-01-30 00:12 | CT Scan Report ---
Exam(s): CTA HEAD With Contrast IV Amt: 117 cc opti 320 EXAM: CT Angiography Head With Intravenous Contrast CLINICAL HISTORY: Reason for exam: dizziness/syncope/weak. TECHNIQUE: Axial computed tomographic angiography images of the head with intravenous contrast. CTDI is 37 mGy and DLP is 624 mGy-cm. Automated exposure control was utilized for the study. A dose lowering technique was utilized adhering to the principles of ALARA. MIP reconstructed images were created and reviewed. CONTRAST: Patient received 117 cc opti 320 of IV contrast COMPARISON: No relevant prior studies available. FINDINGS: Right internal carotid artery: No acute findings. Intracranial segment is patent with no significant stenosis. No aneurysm. Right anterior cerebral artery: Unremarkable. No occlusion or significant stenosis. No aneurysm. Right middle cerebral artery: Unremarkable. No occlusion or significant stenosis. No aneurysm. Right posterior cerebral artery: Unremarkable. No occlusion or significant stenosis. No aneurysm. Right vertebral artery: Unremarkable as visualized. Left internal carotid artery: No acute findings. Intracranial segment is patent with no significant stenosis. No aneurysm. Left anterior cerebral artery: Unremarkable. No occlusion or significant stenosis. No aneurysm. Left middle cerebral artery: Unremarkable. No occlusion or significant stenosis. No aneurysm. Left posterior cerebral artery: Unremarkable. No occlusion or significant stenosis. No aneurysm. Left vertebral artery: Unremarkable as visualized. Basilar artery: Unremarkable. No occlusion or significant stenosis. No aneurysm. IMPRESSION: No acute abnormality. Electronically signed by: Jarrod Medina MD 01/30/24 00:11 AM
--- NOTE | 2024-01-30 00:14 | CT Scan Report ---
Exam(s): CTA NECK With Contrast IV Amt: 117 cc opti 320 EXAM: CT Angiography Neck With Intravenous Contrast CLINICAL HISTORY: Reason for exam: dizziness/syncope/weak. TECHNIQUE: Routine carotid CT angiography protocol was performed with intravenous contrast. NASCET criteria using the distal ICAs for comparison were used for evaluation of stenoses. CTDI is 37 mGy and DLP is 624 mGy-cm. Automated exposure control was utilized for the study. A dose lowering technique was utilized adhering to the principles of ALARA. MIP reconstructed images were created and reviewed. CONTRAST: Patient received 117 cc opti 320 of IV contrast COMPARISON: None. FINDINGS: VASCULATURE: Right common carotid artery: Unremarkable. No occlusion or significant stenosis. No dissection. Right internal carotid artery: Atheromatous plaque within the proximal right ICA causing 50% stenosis. No dissection. Right vertebral artery: Unremarkable. No occlusion or significant stenosis. No dissection. Left common carotid artery: Unremarkable. No occlusion or significant stenosis. No dissection. Left internal carotid artery: Unremarkable. Extracranial segment is patent with no occlusion or significant stenosis. No dissection. Left vertebral artery: Unremarkable. No occlusion or significant stenosis. No dissection. NECK: Bones/joints: Severe spinal canal stenosis at C5-6. Degenerative changes within the cervical spine. No acute fracture. Soft tissues: Unremarkable. Lung apices: Clear. CAROTID STENOSIS REFERENCE USING NASCET CRITERIA: % ICA stenosis = (1 - narrowest ICA diameter/diameter of distal cervical ICA) x 100. Mild - <50% stenosis. Moderate - 50-69% stenosis. Severe - 70-94% stenosis. Near occlusion - 95-99% stenosis. Occluded - 100% stenosis. IMPRESSION: 1. Atheromatous plaque within the proximal right ICA causing 50% stenosis. 2. Severe spinal canal stenosis at C5-6. Electronically signed by: Jarrod Medina MD 01/30/24 00:14 AM
[2024-01-30 06:20] LABS: Hematocrit (blood only) 45.8 % (42.0-52.0); Hemoglobin 15.6 g/dl (14.0-18.0); Mean Corpuscular Hemoglobin 29.3 pg (25.0-34.0); Mean Corpuscular Hgb Conc 34.1 g/dL (32.0-36.0); Mean Corpuscular Volume 85.9 fL (80.0-100.0); Mean Platelet Volume 12.1 fL (9.4-12.4); Platelet Count 58 K/uL (130-400); RDW Coefficient of Variation 12.8 % (11.5-14.5); RDW Standard Deviation 39.8 fL (36.4-46.3); Red Blood Count 5.33 M/uL (4.70-6.10); White Blood Count 1.82 K/ul (4.8-10.8)
[2024-01-30 06:25] LABS: Albumin Globulin Ratio 1.2 (0.9-2); Albumin Level 3.5 gm/dl (3.4-5.0); BUN Creatinine Ratio 10.2 (10-20); Bilirubin,Total 0.8 mg/dl (0.2-1.0); Calcium 8.1 mg/dl (8.6-10.3); Creatinine Clr Calc Pharmacy 81.8 ml/min; Est GFR (Non-African American) 71.6 ml/min; Globulin 2.9 gm/dl (2.5-4.0); Potassium 3.8 mmol/L (3.5-5.1); Total Protein 6.4 gm/dl (6.0-8.3)
[2024-01-30 06:26] LABS: Appearance Urine Cloudy (Clear); Bacteria Urine Automated None Seen (None Seen); Bilirubin Urine Negative (Negative); Blood Urine 1+ (Negative); Cast Urine Automated 0-2 /lpf (0-2); Color Urine Yellow; Epithelial Cell Urine Auto 0-2 /hpf (0-2); Glucose Urine UA Negative (Negative); Ketones Urine Trace (Negative); Leukocyte Esterase Urine Negative (Negative); Nitrite Urine Negative (Negative); Protein Urine 2+ (Negative); RBC Urine Automated 0-2 /hpf (0-2); Urobilinogen Urine Negative (Negative); WBC Urine Automated 0-5 /hpf (0-5); pH Urine 5.5 (4.5-7.5)
--- NOTE | 2024-01-30 07:21 | XRay Report ---
SINGLE VIEW CHEST CLINICAL HISTORY: Dizziness. Syncope. Generalized weakness. FINDINGS: An AP, portable, upright chest radiograph is compared to study dated 01/25/2020. Surgical cl ips project over the lower neck. The heart is enlarged. The pulmonary vasculature is noncongested. Ch ronic interstitial thickening is similar to previous. There is bibasilar scarring/atelectasis. The ekaterina ngs and pleural spaces are otherwise clear. No pneumothorax is seen. The skeletal structures are oste openic. The bony thorax is grossly intact. Arthritic change is seen in the shoulders. IMPRESSION: Cardiomegaly with no active disease in the chest. ACT 112: Negative or not required by law. Electronically signed by: Thiago Shannon M.D. 01/30/2024 7:19 AM
[2024-01-30] MEDS: DOXYCYCLINE HYCLATE 100 MG CAP PO SCH (08:17)
--- NOTE | 2024-01-30 09:58 | Hospitalist Progress Note ---
Date of Service January 30, 2024 Assessment & Plan (1) Lyme disease: Plan: Patient presented to ED on 01/28 with chief complaint of dizziness, decreased appetite, and fatigue. He was found to be Lyme IgG and IgM positive. -Reviewed labs 01/28: Lyme IgG/IgM positive, anaplasmosis/babesosis negative. procal 2.71 -Reviewed labs 01/29: WBC 1.82, plt 58, hgb 15.6, TB 0.8, AST/ALT 105/63 -Reviewed imaging 01/28: CXR, CT, head CTA WNL -Neck CTA demonstrated atheromatous plaque within proximal right ICA causing 50% stenosis; severe spinal canal stenosis at C5-C6 -Continue doxycycline 100mg BID -Continue Ceftriaxone 2g Q24h AM CBC and CMP (2) Dizziness: Plan: Patient reports dizziness improved today but not back to baseline. 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 -orthostatics BP: lying 131/75, sitting 125/73, standing 98/63 -s/p 1L fluids in ED -ordered 1 additional L of fluid 01/29 -Reviewed CMP : sodium improved 134, BG 106 (3) Elevated troponin: Plan: Upon presentation patients troponin elevated at 26.5 -Recheck 01/28 32.9 -Recheck 01/29 30.9 -Reviewed EKG 01/28: w/o ischemic changes -low concern for cardiac injury/damage. (4) Thrombocytopenia: Plan: Patient has history of thrombocytopenia on previous lab studies dating back to 2019. -acute on chronic in setting of Lyme Disease -Reviewed CBC 01/29: plt 58 -typically trend in low 130s range -continue to hold aspirin -patient endorses no history of heavy alcohol use or liver disease -could consider outpatient workup for further etiologies regarding this finding. Plan Chronic conditions: -hold simvastatin in setting of transaminitis -continue levothyroxine 125mcg daily for hypothyroidism -continue atenolol 100mg nightly for HTN Diet: heart healthy Code: full DVT prophylaxis: encourage ambulation as tolerated Disposition: medical. -Anticipate discharge AM of 01/30. Admission and Anticipated Discharge Date Admission Date: January 29, 2024 Subjective Patient seen and examined this morning at bedside. Patient reports he feels his symptoms have improved but is not back to his baseline yet. He reports dizziness when looking at his phone for prolonged periods of time. He also notices dizziness when going from laying down to sitting position. He states if he sits for about 20-30 seconds his dizziness resolves and he is able to ambulate without difficulty. He states he has been having these symptoms for about 5-6 days now. He states his nausea and vomiting have resolved. He tolerated his breakfast with no difficulty. 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 He has a history of Lyme disease. He reports no recent tick bites or rashes that he is aware of. He is feels he may be ready to go home today but is willing to stay an extra day to return to his baseline. orthostatic BPs: lying down 131/75, sitting 125/73, standing 98/63. Physical Exam 2 Constitutional: WD/WN, vitals as above Eyes: PERRL, conjunctivae normal, anicteric sclerae Respiratory: normal respiratory effort, lungs clear to auscultation Cardiovascular: RRR, no murmur, no edema Gastrointestinal (Abdomen): normal bowel sounds, soft, nontender, no hepatosplenomegaly Skin: no rashes, warm and dry Neurologic: PERRL, EOMI, accommodation nl, no face palsy, no dysarthria Psychiatric: A+Ox3, euthymic affect Results & Data Results & Data Vital Signs (Past 12 Hours) Vital Signs Temp Pulse Pulse Pulse Resp BP BP 01/30/24 09:33 64 122/69 01/30/24 07:58 36.9 C 73 16 99/62 L 01/30/24 01:04 36.6 C 68 17 161/79 H 01/30/24 00:48 36.6 C 68 17 161/79 H 01/30/24 00:09 68 01/29/24 23:00 69 18 137/74 Pulse Ox O2 Del Method 01/30/24 09:33 01/30/24 07:58 95 Room Air 01/30/24 01:04 98 Room Air 01/30/24 00:48 98 Room Air 01/30/24 00:09 01/29/24 23:00 97 Room Air Laboratory Results 01/30/24 05:24 01/30/24 05:24 Diagnostic Findings Chest X-Ray 01/29/24 19:54 IMPRESSION: Cardiomegaly with no active disease in the chest. Electronically signed by: Thiago Shannon M.D. 01/30/2024 7:[address] 01/29/24 19:54 EXAM: CT Head Without Intravenous Contrast IMPRESSION: 1. No acute intracranial abnormality. Electronically signed by: Jarrod Medina MD 01/30/24 00:10 AM Head CTA 01/29/24 19:54 EXAM: CT Angiography Head With Intravenous Contrast IMPRESSION: No acute abnormality. Electronically signed by: Jarrod Medina MD 01/30/24 00:11 AM Neck CTA 01/29/24 19:54 Exam(s): CTA NECK With Contrast IV Amt: 117 cc opti 320 IMPRESSION: 1. Atheromatous plaque within the proximal right ICA causing 50% stenosis. 2. Severe spinal canal stenosis at C5-6. Electronically signed by: Jarrod Medina MD 01/30/24 00:14 AM PG Care Time/CCT Total # of Minutes Spent Total Time Spent with Patient: Total time spent is greater than 50% in coordination of care (as documented) at patient's floor/unit and/or counseling patient: Coding Level of Care Code 62415 SUB INP/OBS CARE 2/35MIN Diagnoses Lyme disease A69.20 Dizziness R42 Elevated troponin R79.89 Thrombocytopenia D69.6
[2024-01-30 10:15] LABS: Troponin I High Sensitivity 30.9 pg/ml (0-20)
[2024-01-30] MEDS: SODIUM CHLORIDE 0.9% 1,000 ML IV SCH (10:38)
--- NOTE | 2024-01-30 10:52 | Electrocardiogram Report ---
Test Reason : Blood Pressure : / mmHG Vent. Rate : 073 BPM Atrial Rate : 073 BPM P-R Int : 186 ms QRS Dur : 090 ms QT Int : 390 ms P-R-T Axes : 046 -09 018 degrees QTc Int : 429 ms Sinus rhythm with Premature atrial complexes Otherwise normal ECG When compared with ECG of 25-JAN-2020 10:41, Premature atrial complexes are now Present Confirmed by Jesus Schmitt ([id number]) on 01/30/2024 10:52:17 AM Referred By: REFERRED SELF Confirmed By:Jesus Schmitt
[2024-01-30] MEDS: cefTRIAXone SODIUM 2,000 MG/50 ML BAG IV SCH (19:51)
[2024-01-30] MEDS: ATENOLOL 50 MG TABLET PO SCH (19:51)
[2024-01-30] MEDS: LEVOTHYROXINE SODIUM 125 MCG TABLET PO SCH (19:52)
[2024-01-31 07:13] LABS: Albumin Globulin Ratio 1.2 (0.9-2); Albumin Level 3.5 gm/dl (3.4-5.0); BUN Creatinine Ratio 13.6 (10-20); Bilirubin,Total 0.7 mg/dl (0.2-1.0); Calcium 8.4 mg/dl (8.6-10.3); Creatinine Clr Calc Pharmacy 100.4 ml/min; Est GFR (African American) 104.5 ml/min; Est GFR (Non-African American) 90.1 ml/min; Potassium 3.8 mmol/L (3.5-5.1); Total Protein 6.5 gm/dl (6.0-8.3)
[2024-01-31 07:17] LABS: Hemoglobin 15.9 g/dl (14.0-18.0); Mean Corpuscular Hemoglobin 29.7 pg (25.0-34.0); Mean Corpuscular Hgb Conc 34.6 g/dL (32.0-36.0); Mean Corpuscular Volume 85.8 fL (80.0-100.0); Mean Platelet Volume 12.9 fL (9.4-12.4); Platelet Count 70 K/uL (130-400); RDW Coefficient of Variation 12.9 % (11.5-14.5); RDW Standard Deviation 39.8 fL (36.4-46.3); Red Blood Count 5.36 M/uL (4.70-6.10); White Blood Count 2.72 K/ul (4.8-10.8)
[2024-01-31 08:30] LABS: ALC (manual) 1.93 K/uL (1.2-3.4); ANC (manual) 0.54 K/uL (1.4-6.5); Basophils # (manual) 0.05 K/uL (0-0.2); Basophils % (manual) 2 %; Lymphocytes # (manual) 1.03 K/uL (1.2-3.4); Lymphocytes % (manual) 38 %; Metamyelocytes # (manual) 0.03 K/uL (0-0); Metamyelocytes % (manual) 1 %; Monocytes # (manual) 0.16 K/uL (0.11-0.59); Monocytes % (manual) 6 %; Neutrophils # (manual) 0.54 K/uL (1.40-6.50); Neutrophils % (manual) 20 %; Reactive Lymphocytes % (manual) 33 %
--- NOTE | 2024-01-31 09:50 | Discharge Summary ---
Date of Service January 31, 2024 Admission HPI Per Admitting Provider Pt is a 63 yo male with PMH of CAD presenting due to dizziness, loss of appetite, and fatigue. Pt notes he began to be symptomatic Noel night. He thought it was simply due to the heat; however, throughout the weekend his symptoms did not improve. He did have a few episodes of nausea/vomiting. He denies current chest pain, SOB, or LE pain. Pt does not recall any specific tick bites but does have a hx of lyme disease and [place] so has frequent exposure to ticks. In the ER, pt was given 1L NS, ceftriaxone x1, reglan x1, and doxy x1. Principal Diagnosis Lyme Disease Discharge Exam Constitutional WD/WN, vitals as above Eyes PERRL, conjunctivae normal, anicteric sclerae Respiratory normal respiratory effort, lungs clear to auscultation Cardiovascular RRR, no murmur, no edema Skin no rashes, warm and dry Psychiatric A+Ox3, euthymic affect Discharge Data Allergies Allergy/AdvReac Type Severity Reaction Status Date / Time No Known Allergies Allergy Verified 01/29/24 22:57 Consultations 01/29/24 22:11 ED Decision to Admit Stat Ordered Studies 01/31/24 06:05 01/31/24 06:05 Chest X-Ray 01/29/24 19:54 IMPRESSION: Cardiomegaly with no active disease in the chest. Electronically signed by: Thiago Shannon M.D. 01/30/2024 7:[address] 01/29/24 19:54 IMPRESSION: 1. No acute intracranial abnormality. Electronically signed by: Jarrod Medina MD 01/30/24 00:10 AM Head CTA 01/29/24 19:54 IMPRESSION: No acute abnormality. Electronically signed by: Jarrod Medina MD 01/30/24 00:11 AM Neck CTA 01/29/24 19:54 IMPRESSION: 1. Atheromatous plaque within the proximal right ICA causing 50% stenosis. 2. Severe spinal canal stenosis at C5-6. Electronically signed by: Jarrod Medina MD 01/30/24 00:14 AM Vital Signs Temp 36.5 C 01/31/24 07:17 Pulse 68 01/31/24 07:17 Resp 16 01/31/24 07:17 BP 111/74 01/31/24 07:17 Pulse Ox 98 01/31/24 07:17 O2 Del Method Room Air 01/31/24 07:17 Hospital Course (1) Lyme disease: Patient presented to ED on 01/28 with chief complaint of dizziness, decreased appetite, and fatigue. He was found to be Lyme IgG/IgM positive, anaplasmosis negative, and babesiosis negative. His procal was elevated at 2.71 but on 01/30 downtrended to 1.18. He was found to be leukopenic, thrombocytopenic, and have transaminitis. This was all likely due to Lyme. Day of discharge, WBC improved to 2.72, plt 70, TB 0.7, AST/ALT 96/62. He was found to have low neutrophil count of 0.54. He underwent multiple imaging modalities. On 01/28, his CXR, head CT, and head CTA were all negative for acute pathology. His neck CTA did demonstrat atheromatous plaque within proximal right ICA causing 50% stenosis and severe spinal canal stenosis at C5-C6. He was placed on doxycycline 100mg BID and Cefrriaxone 2g Q24h. He was discharged home with an additional 12 days of doxycycline BID. (2) Dizziness: Patient reports dizziness improved today but not back to baseline. 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 On 01/29 he had orthostatic BP taken including a BP of 131/75 lying down, 125/73 sitting, and 98/63 standing. He was given 2L of fluid while hospitalized and had improvement of symptoms on day of discharge. He was found to be mildly hyponatremic but 01/30 revealed sodium WNL. (3) Elevated troponin: Upon presentation patients troponin elevated at 26.5. Recheck on 01/28 revealed slight increase to 32.9 but then downtrended to 30.9 on 01/29. He had an EKG on 01/28 that was without ishemic changes. There was low concern for cardiac injury or damage. (4) Thrombocytopenia: Patient has history of thrombocytopenia on previous lab studies dating back to 2019. Typically his platelets are in the 130 range. His platelets increased to 70 on 01/30. He was encouraged to get a CBC w/ diff on 02/01 to follow up these results. He denied any history of heavy alcohol use or liver disease. Did recommend to the patient a further workup outpatient regarding his chronic thrombocytopenia and to rule out chronic liver disease. He was encouraged to hold his aspirin until seen by his PCP. Plan Chronic conditions: -hold simvastatin in setting of transaminitis x 7 days at discharge -continue levothyroxine 125mcg daily for hypothyroidism -continue atenolol 100mg nightly for HTN Total Time Total Time Spent Total Time Spent (In Minutes): 35 Discharge Plan Discharge Items Patient Disposition: Home - Self-Care Reason For Visit: LYME DISEASE Discharge Diagnosis: Lyme Disease Activity: Resume your previous activity Non-emergency contact: Primary Care Provider Call non-emergency contact if: you have any medication questions, your symptoms worsen and you have a fever Follow-up/Referrals: Jose David Suarez MD [Primary Care Provider] - 02/09/24 11:00 am (APPOINTMENT WITH KARTHIK DAVIDSON) Diet: Heart Healthy Addtl Attending Provider Instructions: Mr. Ballard, You were recently hospitalized for dizziness, fatigue, and a decreased appetite. Upon testing, you were found to be positive for Lyme Disease. You have been treated with appropriate antibiotics and given fluids while here. You were found to have a low white blood cell and platelet count. Your liver numbers were also elevated. These abnormalities are likely due to your tick borne illness. Please see further recommendations below. -Please continue on Doxycycline 100mg twice daily for the next 12 days. Your next dose will be tonight 01/30. -Please take with food to avoid upset stomach. -Please obtain lab work on 02/01 to recheck your white blood cells, platelets, and liver numbers. -Please continue to drink an adequate amount of fluids at home. -Please hold your Simvastatin for an additional 7 days. -Please hold your aspirin until seen by your PCP for further recommendations. -Please continue your levothyroxine for hypothyroidism and atenolol for high blood pressure. -Please follow up with your PCP within the next 1-2 weeks. -If you experience any worsening of your symptoms including dizziness, chest pain, shortness of breath, or fevers please report back to the ED. Sincerely, Lary Robles PA-C Pending Studies at Discharge: No Stand-Alone Forms: My [employer], Smoking Cessation Medications and DC Order Prescriptions: New doxycycline hyclate 100 mg capsule 100 mg PO BID 12 Days Qty: 24 0RF Continued levothyroxine 125 mcg tablet 125 mcg PO HS Qty: 90 3RF Galzin 25 mg (zinc) capsule 50 mg PO DAILY cholecalciferol (vitamin D3) 250 mcg (10,000 unit) capsule 250 mcg PO DAILY niacin 1,000 mg tablet extended release 24 hr 1,500 mg PO BID Patient Comments: 3 GRAMS TOTAL DAILY resveratrol 250 mg capsule 800 mg PO DAILY vitamin B complex Tablet 1 tab PO BID coQ10 (ubiquinol) 100 mg capsule 100 mg PO DAILY lecithin 1,200 mg capsule 2,400 mg PO BID vitamin K2 40 mcg tablet 100 mcg PO DAILY atenolol 100 mg tablet 100 mg PO HS magnesium glycinate 100 mg Tablet 800 mg PO DAILY Held simvastatin 40 mg tablet 40 mg PO HS Qty: 90 3RF Hold Instructions: Resume on 02/07/24. Discontinued aspirin [Aspirin Low-Strength] 81 mg Tablet,Delayed Release (Dr/Ec) 81 mg PO DAILY Discharge Orders: Discharge Order (Routine); Ordered 01/31/24 Ordered By: Lary Lanier/Other Patient Handouts: ED Lyme Disease Admission Data Admit Date/Time: 01/29/24 23:18 Attending Provider: Juvencio Damian Admit Provider: Anastasiya Lockwood Primary Care Provider: Jose David Suarez Other Providers: Dilshad Sena Other Interventions: Discharge Summary Assessment (RN) Last Done: 01/31/24 10:11 Supervising Physician Co-Signing Physician Notes During face to face encounter, I obtained a brief physical examination, discussed hospital stay with patient and discharge instructions with patient. I discussed discharge plan of care with CHASE Robles I reviewed above note and agree with it except for the following: Patient admitted with lyme disease. Patient improved with doxycyline. Patient will complete course as an outpatient. Coding Level of Care Code 85609 INP/OBS DISCH >30 MIN Diagnoses Lyme disease A69.20 Dizziness R42 Elevated troponin R79.89 Thrombocytopenia D69.6
--- NOTE | 2024-01-31 22:41 | Billing Data ---
Date of Service January 31, 2024 Coding Level of Care Code 45767 INT INP/OBS CARE
[2024-02-01 21:23] LABS: Babesia microti DNA Not Detected (Not Detected)
== END 2024-01-31 10:56 | disposition home or self-care (01) ==
LOC: 3E 19:40 → ED 19:40 → SUATTDRO 23:18 → 3E 01-30 00:44